=== PATIENT | female | born 1975 | race African-American/Black ===

== ENCOUNTER → 2020-04-26 | Outpatient (CLI) | payer OTHER | LOC: COL.VAS 13:30 | DX: Z01.812 Encounter for preprocedural laboratory examination (principal); C50.112 Malignant neoplasm of central portion of left female breast; I51.7 Cardiomegaly ==

== ENCOUNTER → 2020-07-24 | Outpatient (CLI) | payer OTHER | LOC: COL.VAS 12:17 | DX: C50.112 Malignant neoplasm of central portion of left female breast (principal); Z92.21 Personal history of antineoplastic chemotherapy ==

== ENCOUNTER → 2020-10-24 | Outpatient (CLI) | payer OTHER | LOC: COL.VAS 12:05 | DX: C50.112 Malignant neoplasm of central portion of left female breast (principal) ==

== ENCOUNTER → 2021-01-18 | Outpatient (CLI) | payer OTHER ==
[~2021-01-18] MED LIST: MERIBIN5 MG PO; TYLENOL 325MG325 MG PO; WOMEN'S DAILY F1 TAB PO
== END ==
LOC: COL.VAS 11:31
DX: C50.112 Malignant neoplasm of central portion of left female breast (principal)

== ENCOUNTER → 2021-03-29 | Outpatient (CLI) | payer OTHER | LOC: COL.RAD 12:59 | DX: M50.30 Other cervical disc degeneration, unspecified cervical region (principal) | CPT/HCPCS: A9585 ==

== ENCOUNTER 2021-04-25 15:13 | Emergency (ER) | payer OTHER ==
[~2021-04-25] VITALS: Ht 162.6 cm; Wt 86.4 kg
[2021-04-25 16:03] VITALS: TEMP 98.1
[2021-04-25] MEDS ORDERED: WOMEN'S DAILY F1 TAB PO (16:30)
[2021-04-25] MEDS ORDERED: TYLENOL 325MG325 MG PO (16:31)
[2021-04-25] MEDS ORDERED: MERIBIN5 MG PO (16:31)
[2021-04-25 18:38] VITALS: BP 144/85; PULSE 79
== END 2021-04-25 18:41 | disposition short-term general hospital (02) ==
LOC: COL.ER 15:13
DX: T81.508A Unspecified complication of foreign body accidentally left in body following other procedure, initial encounter (principal); Z85.3 Personal history of malignant neoplasm of breast